=== PATIENT | female | born 1980 | race Caucasian/White ===

== ENCOUNTER 2018-09-23 05:32 | Observation (INO) | payer BC ==
[2018-09-23] MEDS ORDERED: LR 1,000 ML IV ONE (05:45)
[2018-09-23] MEDS ORDERED: LIDOCAINE 1% 2 ML INJ ID PRN (05:45)
[2018-09-23] MEDS ORDERED: VANCOMYCIN HCL/NORMAL SALINE 250 ML IV ONE (06:00)
[2018-09-23] MEDS ORDERED: VANCOMYCIN PHARMACY TO DOSE MISC ONE (06:00)
[2018-09-23] MEDS ORDERED: PROPOFOL/EMULSION 500 MG/50 ML BOTTLE IV ONE (07:04)
[2018-09-23] MEDS ORDERED: MIDAZOLAM 2 MG/2 ML VIAL ONE ×2 (07:04→07:18)
[2018-09-23] MEDS ORDERED: fentaNYL 100 MCG/2 ML INJ ONE (07:04)
[2018-09-23] MEDS ORDERED: BUPIVACAINE/DEXTROSE 7.5MG/ML 2 ML SPINAL AMP SP ONE (07:09)
--- NOTE | 2018-09-23 07:17 | PDHPUP ---
History & Physical Update H&P update statement: This history and physical update is based on an assessment of the patient which was completed after admission or registration (within 24 hours), but prior to the surgery/procedure. H&P update: H&P reviewed & patient examined, no change in patient's condition since H&P completed
--- NOTE | 2018-09-23 07:23 | PDANEPAE ---
ANE Past Medical History - Cardiovascular History Hx Hypertension: No Hx Arrhythmias: No Hx Chest Pain: No Hx Coronary Artery / Peripheral Vascular Disease: No Hx CHF / Valvular Disease: No Hx Palpitations: No - Pulmonary History Hx COPD: No Hx Asthma/Reactive Airway Disease: No Hx Recent Upper Respiratory Infection: No Hx Oxygen in Use at Home: No Hx Sleep Apnea: No Sleep Apnea Screening Result - Last Documented: Negative - Neurologic History Hx Cerebrovascular Accident: No Hx Seizures: No Hx Dementia: No - Endocrine History Hx Diabetes: No - Renal History Hx Renal Disorders: No - Liver History Hx Hepatic Disorders: No - Neurological & Psychiatric Hx Hx Neurological and Psychiatric Disorders: No - Cancer History Hx Cancer: Yes Cancer History Comment: cervical CA - Congenital Disorder History Hx Congenital Disorders: No - GI History Hx Gastrointestinal Disorders: No Gastrointestinal History Comment: dairy intolerant - Other Health History Other Health History: wears glasses/contacts - Chronic Pain History Chronic Pain: No - Surgical History Prior Surgeries: breast augmentation. c-sections (epidural & spinal only) ANE Review of Systems Review of Systems: - Exercise capacity METS (RN): 5 METS ANE Patient History - Allergies Allergies/Adverse Reactions: cephalexin Allergy (Verified 08/14/18 11:49) Hives - Home Medications Home Medications: Ethynodiol D-Ethinyl Estradiol [KELNOR 1-35] 1 each PO DAILY 08/14/18 [Last Taken 09/14/18] Herbals/Supplements -Info Only 1 ea PO DAILY 08/14/18 [Last Taken 09/16/18] - NPO status NPO Since - Liquids (Date): 09/23/18 NPO Since - Liquids (Time): 05:00 NPO Since - Solids (Date): 09/22/18 NPO Since - Solids (Time): 17:30 - Smoking Hx Smoking Status: Never smoked - Family Anes Hx Family Hx Anesthesia Complications: none ANE Labs/Vital Signs - Vital Signs Blood Pressure: 143/66 Heart Rate: 83 Respiratory Rate: 18 O2 Sat (%): 99 Height: 162.56 cm Weight: 56.699 kg ANE Physical Exam - Airway Neck exam: FROM Mallampati Score: Class 1 Mouth exam: normal dental/mouth exam - Pulmonary Pulmonary: no respiratory distress, no rales or rhonchi, clear to auscultation - Cardiovascular Cardiovascular: regular rate and rhythym, no murmur, rub, or gallop - ASA Status ASA Status: I ANE Anesthesia Plan Anesthesia Plan: general endotracheal anesthesia, spinal
[2018-09-23] MEDS ORDERED: morphINE PF 5 MG/10 ML INJ ONE (07:40)
[2018-09-23] MEDS ORDERED: PROMETHAZINE HCL 25 MG/ML INJ IVP PRN (08:00)
[2018-09-23] MEDS ORDERED: fentaNYL 100 MCG/2 ML INJ IVP PRN (08:00)
[2018-09-23] MEDS ORDERED: METOCLOPRAMIDE 10 MG/2 ML VIAL IVP PRN (08:00)
[2018-09-23] MEDS ORDERED: ONDANSETRON 4 MG/2 ML VIAL IVP PRN ×2 (08:00→08:52)
[2018-09-23] MEDS ORDERED: LR 500 ML IV PRN (08:00)
[2018-09-23] MEDS ORDERED: DEXAMETHASONE 4 MG/ML VIAL IVP PRN (08:00)
[2018-09-23] MEDS ORDERED: ALBUTEROL 3 ML DEYVIAL IH PRN (08:00)
[2018-09-23] MEDS ORDERED: NALOXONE HCL 0.4 MG/ML INJ IVP PRN ×2 (08:00→08:52)
[2018-09-23] MEDS ORDERED: MEPERIDINE 25 MG/0.5 ML AMP IVP PRN (08:00)
[2018-09-23] MEDS ORDERED: NEOSTIGMINE METHYLSULFATE 5 MG/5 ML SYR ONE (08:09)
[2018-09-23] MEDS ORDERED: KETOROLAC 30 MG/1 ML SDV ONE (08:09)
[2018-09-23] MEDS ORDERED: LIDOCAINE 2% 2 ML INJ ONE (08:09)
[2018-09-23] MEDS ORDERED: DEXAMETHASONE 4 MG/ML VIAL ONE (08:09)
[2018-09-23] MEDS ORDERED: ROCURONIUM 50 MG/5 ML VIAL ONE (08:09)
[2018-09-23] MEDS ORDERED: GLYCOPYRROLATE 0.2 MG/1 ML VIAL ONE (08:09)
[2018-09-23] MEDS ORDERED: METOCLOPRAMIDE 10 MG/2 ML VIAL ONE (08:09)
[2018-09-23] MEDS ORDERED: ONDANSETRON 4 MG/2 ML VIAL ONE (08:09)
[2018-09-23] MEDS ORDERED: CALCIUM CHLORIDE 1 GM/10 ML INJ ONE (08:11)
--- NOTE | 2018-09-23 09:32 | POSTOPPROG ---
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
--- NOTE | 2018-09-23 09:34 | POSTANESTH ---
Post Anesthetic Evaluation Cardiovascular Status: Normal, Stable, Similar to Pre-Op Cond Respiratory Status: Normal, Stable, Similar to Pre-op Cond. Level of Consciousness/Mental Status: Mildly Sleepy, Arousable Pain Control: Adequate, Prn Tx Ordered Nausea/Vomiting Control: Adequate, Prn Tx Ordered Complications Possibly Related to Anesthesia: None Noted
--- NOTE | 2018-09-23 11:25 | GOP ---
DATE OF OPERATION: 09/23/2018 SURGEON: Airam Anaya MD SECURITY POLICE OFFICER: Jaky Carreon, [facility]. ANESTHESIA: Robina Mancia MD. Spinal and morphine for postop pain control and general with LMA. PREOPERATIVE DIAGNOSIS: Adenocarcinoma in situ of the cervix. POSTOPERATIVE DIAGNOSIS: Adenocarcinoma in situ of the cervix. PROCEDURE PERFORMED: Total vaginal hysterectomy with bilateral salpingectomy. FINDINGS: Normal-appearing cervix, uterus, ovaries, and fallopian tubes. ESTIMATED BLOOD LOSS: 100 cc. INDICATIONS: The patient is a 37-year-old, G2, P2, who initially had an abnormal Pap that showed aty pical glandular cells. She had a colposcopy, biopsy and this showed high-grade adenocarcinoma in sit u. The LEEP biopsy followed and again this showed persistent disease. She did have a followup Pap a nd that was negative, but because she is done with childbearing and the severity of her disease, it w as advised that she undergo definitive treatment with a hysterectomy. DESCRIPTION OF PROCEDURE: With informed consent signed, patient taken the operating room, placed und er spinal, then general anesthesia without complication. Placed in the high dorsal lithotomy position , prepped and draped in usual sterile fashion. Morrow catheter placed. Two tenaculum placed on the ce rvix and then a posterior colpotomy was done entering the posterior cul-de-sac using scissors. Then the vaginal mucosa edge was approximated to the peritoneal edge with a running baseball stitch. Then , the left uterosacral ligament was clamped, cut, and suture ligated. The same was done on the right . The cardinal ligament on each side was clamped, cut, and suture ligated. The uterine vessels were clamped, cut, and suture ligated. The anterior peritoneum was opened sharply, being very careful to avoid bladder injury from her 2 previous C-sections. This was done without complication and then th e utero-ovarian ligaments on each side were clamped, cut, suture ligated, and the uterus and cervix w ere handed off for specimen. Next, the left fallopian tube was isolated and clamped with the Mario clamp and resected and handed off for specimen, and then this was suture ligated. The pedicle was orozco ture ligated and inspection of the utero-ovarian pedicle and where the salpingectomy was performed, w as noted to be hemostatic. The same process was done on the right, removing the right fallopian tube. At this point hemostasis was noted on all the pedicles and closure performed with doing a Ware's culdoplasty; grasping the 6 o'clock position of the vaginal mucosa with a 2-0 suture and then incorpo rating the left uterosacral ligament and several bites of the posterior cul-de-sac, and then the righ t uterosacral ligament. Then the suture was brought out at the 6 o'clock position. This tied down ob literating the cul-de-sac and then the vaginal cuff was closed with [id number] sutures. Again, hemostasis was noted. Patient placed in the supine position, awakened in the operating room, and jose en to recovery room in stable condition. Tolerated procedure well. COMPLICATIONS: None. /[id number]/MODL
[2018-09-23] MEDS: IBUPROFEN 600 MG TAB PO PRN (19:18)
[2018-09-24] MEDS: IBUPROFEN 600 MG TAB PO PRN ×2 (02:26→08:48)
[2018-09-24] MEDS: HYDROCODONE/APAP 5/325 TAB PO PRN ×2 (06:33→09:30)
[2018-09-24 08:22] VITALS: BP 112/73
[2018-09-24] MEDS ORDERED: IBUPROFEN 600 MG TAB PO SCH (09:59)
--- NOTE | 2018-09-24 11:19 | SOAPPROG ---
SOAP Progress Note Assessment/Plan: Assessment:pod #1 S/P TVH for adenocarcinoma in situ of the cervix, had a bought of pain this morning that caused nausea but doing better , ok for d/c Plan:d/c home meds are norco and zofran and will take OTC advil for pain , f/u in 1-2 weeks and d/c precautions given 09/24/18 11:15 Subjective: ceja removed and urinating and addison regular diet , no bleeding and did well until episode of severe pain on left side that radiates to back , has received motrin and 2 Dyer and doing better Objective: Vital Signs Temp Pulse Resp BP Pulse Ox 36.9 C 61 14 112/73 99 09/24/18 08:00 09/24/18 08:00 09/24/18 08:00 09/24/18 08:00 09/24/18 08:00 Laboratory Results 09/24/18 05:07 09/23/18 09/24/18 09/25/18 05:59 05:59 05:59 Intake Total 2455 Output Total 2820 Balance -365 - Time Spent With Patient Time Spent With Patient: 15 MIN - Pending Discharge Pending Discharge Within 24 Hours: Yes Pending Discharge Date: 09/25/18 Pending Discharge Time: 11:00 ICD10 Worksheet Patient Problems: Problems Problem Status Onset Postop check Acute - ICD10 Problem Qualifiers (1) Postop check
== END 2018-09-24 11:40 | disposition home or self-care (01) ==
LOC: F3E 05:32
PROVIDERS: ADMIT Obstetrics & Gynecology Gynecology; ATTEND Obstetrics & Gynecology Gynecology
DX: D06.9 Carcinoma in situ of cervix, unspecified (principal)
CPT/HCPCS: 58262; G0378; J1100; J1200; J1885; J2250; J2274; J2405; J2704; J2710; J2765; J3010; J3370